=== PATIENT | male | born 1960 | race Caucasian/White ===

== ENCOUNTER 2023-12-24 13:01 | Inpatient (IN) | payer MEDICARE, BC ==
[~2023-12-24] VITALS: Ht 177.8 cm; Wt 77.1 kg
[2023-12-24 13:36] LABS: BASOPHILS # (AUTO) 0.1 K/UL (0.0-0.2); BASOPHILS % (AUTO) 0.9 % (0.0-2.0); EOSINOPHILS # (AUTO) 0.1 K/uL (0.0-0.7); EOSINOPHILS % (AUTO) 1.1 % (0.0-7.0); HEMATOCRIT 46.5 % (36.7-47.1); HEMOGLOBIN 15.8 g/dL (12.5-16.3); LYMPHOCYTES # (AUTO) 2.2 K/uL (0.8-4.8); LYMPHOCYTES % (AUTO) 29.4 % (20.5-51.5); MEAN CORPUSCULAR HEMOGLOBIN 30.3 uug (23.8-33.4); MEAN CORPUSCULAR HGB CONC 34 g/dL (32.5-36.3); MEAN CORPUSCULAR VOLUME 89.6 fL (73.0-96.2); MONOCYTES # (AUTO) 0.5 K/uL (0.1-1.30); MONOCYTES % (AUTO) 6.4 % (0.0-11.0); NEUTROPHILS # (AUTO) 4.6 K/uL (1.8-8.9); NEUTROPHILS % (AUTO) 62.2 % (38.5-71.5); PLATELET COUNT (AUTO) 184 K/uL (152-348); RED BLOOD CELL COUNT(AUTO) 5.19 MIL/uL (4.06-5.63); WHITE BLOOD COUNT (AUTO) 7.4 K/uL (3.6-10.2)
[2023-12-24 13:39] LABS: DIFFERENTIAL COMMENT 1
[2023-12-24 13:48] LABS: CARBON DIOXIDE 31 mmol/L (21-32); CHLORIDE 106 mmol/L (98-107); CREATININE 1.6 mg/dL (0.6-1.3); GLUCOSE 144 mg/dL (74-106); POTASSIUM 3.6 mmol/L (3.5-5.1); SODIUM SERUM 144 mmol/L (136-145); UREA NITROGEN, BLOOD 19 mg/dL (7-18)
[2023-12-24] MEDS ORDERED: ASPIRIN 81 MG TAB.CHEW ONE (14:07)
[2023-12-24] MEDS ORDERED: CLOPIDOGREL 75 MG TABLET ONE (14:07)
[2023-12-24] MEDS: CLOPIDOGREL 75 MG TABLET PO ONE (14:15)
[2023-12-24] MEDS: ASPIRIN 81 MG TAB.CHEW PO ONE (14:15)
[2023-12-24] MEDS ORDERED: SWABABLE VALVE TRANSFER SET EA MC ONE (14:38)
[2023-12-24] MEDS ORDERED: IV NORMAL SALINE 250 ML IV ONE (14:38)
[2023-12-24] MEDS ORDERED: IOHEXOL 350 100 ML INFUS..BTL ONE (14:38)
[2023-12-24] MEDS ORDERED: ONDANSETRON 4 MG/2 ML VIAL IV PRN (16:15)
[2023-12-24] MEDS ORDERED: ACETAMINOPHEN 325 MG TABLET PO PRN (16:15)
[2023-12-24 16:43] LABS: CALCIUM 8.8 mg/dL (8.5-10.1); CREATININE 1.5 mg/dL (0.6-1.3); POTASSIUM 3.9 mmol/L (3.5-5.1)
[2023-12-24 16:57] LABS: ALBUMIN 3.5 g/dL (3.4-5.0); BILIRUBIN,TOTAL 0.4 mg/dL (0.2-1.0); TOTAL PROTEIN, SERUM 6.8 g/dL (6.4-8.2)
[2023-12-24 16:59] LABS: THYROID STIMULATING HORMONE 2.459 mIU/mL (0.358-3.740)
[2023-12-24 17:27] LABS: *BILIRUBIN,URIN NEGATIVE (NEGATIVE); *BLOOD, URINE NEGATIVE (NEGATIVE); *CLARITY,URINE CLEAR (CLEAR); *COLOR,URINE YELLOW (YELLOW); *KETONES,URINE NEGATIVE (NEGATIVE); *PROTEIN,URINE NEGATIVE (NEGATIVE); *UROBILINOGEN,URINE 0.2 E.U./dl (NORMAL); LEUKOCYTE ESTERASE ,URINE NEGATIVE (NEGATIVE); NITRITE, URINE NEGATIVE (NEGATIVE); UGLUCOSE NEGATIVE (NEGATIVE)
[2023-12-24 17:37] VITALS: BP 138/92; TEMP 97.6; O2SAT 97
[2023-12-24] MEDS: BLOOD SUGAR DIAGNOSTIC 1 EACH STRIP VI SCH (17:42)
[2023-12-24] MEDS: IV NS 1000 ML 1,000 ML IV PRN (17:42)
[2023-12-24 20:00] VITALS: BP 131/74; TEMP 98; O2SAT 95
[2023-12-24] MEDS: ATORVASTATIN 20 MG TABLET PO SCH (21:30)
[2023-12-25 00:12] VITALS: BP 124/84; TEMP 98.2; O2SAT 96
[2023-12-25 05:59] VITALS: BP 125/74; TEMP 97.9; O2SAT 95
[2023-12-25 06:52] LABS: BASOPHILS % (AUTO) 0.4 % (0.0-2.0); EOSINOPHILS # (AUTO) 0.1 K/uL (0.0-0.7); EOSINOPHILS % (AUTO) 1.4 % (0.0-7.0); HEMATOCRIT 43.4 % (36.7-47.1); HEMOGLOBIN 15.1 g/dL (12.5-16.3); LYMPHOCYTES # (AUTO) 2.1 K/uL (0.8-4.8); LYMPHOCYTES % (AUTO) 28.6 % (20.5-51.5); MEAN CORPUSCULAR HEMOGLOBIN 31.1 uug (23.8-33.4); MEAN CORPUSCULAR HGB CONC 35 g/dL (32.5-36.3); MEAN CORPUSCULAR VOLUME 89.8 fL (73.0-96.2); MONOCYTES # (AUTO) 0.5 K/uL (0.1-1.30); MONOCYTES % (AUTO) 6.5 % (0.0-11.0); NEUTROPHILS # (AUTO) 4.6 K/uL (1.8-8.9); NEUTROPHILS % (AUTO) 63.1 % (38.5-71.5); PLATELET COUNT (AUTO) 171 K/uL (152-348); RED BLOOD CELL COUNT(AUTO) 4.84 MIL/uL (4.06-5.63); WHITE BLOOD COUNT (AUTO) 7.2 K/uL (3.6-10.2)
[2023-12-25 07:14] LABS: CALCIUM 8.6 mg/dL (8.5-10.1); CREATININE 1.4 mg/dL (0.6-1.3); POTASSIUM 4.2 mmol/L (3.5-5.1)
[2023-12-25 07:17] LABS: DIFFERENTIAL COMMENT 1
[2023-12-25] MEDS ORDERED: INSULIN REGULAR, HUMAN 1000 UNIT/10 ML VIAL SQ PRN (07:45)
[2023-12-25] MEDS ORDERED: DEXTROSE 50% 50 ML DISP.SYRIN IV PRN (07:45)
[2023-12-25 07:47] VITALS: BP 131/77; TEMP 98.1; O2SAT 96
[2023-12-25 07:55] LABS: MAGNESIUM 2.2 mg/dL (1.8-2.4)
[2023-12-25 08:34] VITALS: BP 131/77; TEMP 98.1; O2SAT 96
[2023-12-25] MEDS: BLOOD SUGAR DIAGNOSTIC 1 EACH STRIP VI SCH (12:13)
[2023-12-25 15:40] VITALS: BP 134/83; TEMP 98.2; O2SAT 96
[2023-12-25 19:57] VITALS: BP 131/73; TEMP 98.6; O2SAT 98
[2023-12-26 00:36] VITALS: BP 123/62; TEMP 98.5; O2SAT 96
[2023-12-26 05:19] VITALS: BP 110/56; TEMP 97.8; O2SAT 96
[2023-12-26 06:46] LABS: BASOPHILS # (AUTO) 0.1 K/UL (0.0-0.2); EOSINOPHILS # (AUTO) 0.1 K/uL (0.0-0.7); EOSINOPHILS % (AUTO) 1.4 % (0.0-7.0); HEMATOCRIT 45.6 % (36.7-47.1); HEMOGLOBIN 15.4 g/dL (12.5-16.3); LYMPHOCYTES # (AUTO) 2.2 K/uL (0.8-4.8); LYMPHOCYTES % (AUTO) 29.6 % (20.5-51.5); MEAN CORPUSCULAR HEMOGLOBIN 30.5 uug (23.8-33.4); MEAN CORPUSCULAR HGB CONC 34 g/dL (32.5-36.3); MEAN CORPUSCULAR VOLUME 90.2 fL (73.0-96.2); MONOCYTES # (AUTO) 0.5 K/uL (0.1-1.30); MONOCYTES % (AUTO) 6.3 % (0.0-11.0); NEUTROPHILS # (AUTO) 4.6 K/uL (1.8-8.9); NEUTROPHILS % (AUTO) 61.7 % (38.5-71.5); PLATELET COUNT (AUTO) 168 K/uL (152-348); RED BLOOD CELL COUNT(AUTO) 5.06 MIL/uL (4.06-5.63); RED CELL DISTRIBUTION WIDTH 12.8 % (12.1-16.2); WHITE BLOOD COUNT (AUTO) 7.5 K/uL (3.6-10.2)
[2023-12-26 06:54] LABS: DIFFERENTIAL COMMENT 1
[2023-12-26 07:08] LABS: ALBUMIN 3.4 g/dL (3.4-5.0); BILIRUBIN,TOTAL 0.8 mg/dL (0.2-1.0); CALCIUM 8.5 mg/dL (8.5-10.1); CREATININE 1.3 mg/dL (0.6-1.3); MAGNESIUM 2.5 mg/dL (1.8-2.4); PHOSPHOROUS 2.9 mg/dL (2.5-4.9); POTASSIUM 4.2 mmol/L (3.5-5.1); TOTAL PROTEIN, SERUM 6.8 g/dL (6.4-8.2)
[2023-12-26 07:50] VITALS: BP 122/74; TEMP 97.8; O2SAT 94
[2023-12-26 11:56] VITALS: BP 135/85; TEMP 97.2; O2SAT 97
[2023-12-26] MEDS ORDERED: FENO48TA6 PO (13:39)
[2023-12-26] MEDS ORDERED: CLOP75TA15 PO (13:39)
[2023-12-26] MEDS ORDERED: ATOR40TA PO (13:39)
[2023-12-26] MEDS ORDERED: ASPI-1420 PO (13:39)
[2023-12-27 07:06] LABS: PTH, INTACT 19 pg/mL (15-65)
== END 2023-12-26 15:15 | disposition home or self-care (01) | DRG 64 ==
LOC: ER 13:01 → TELE3 17:02
PROVIDERS: ADMIT Nurse Practitioner Acute Care; ATTEND Nurse Practitioner Acute Care
DX: I63.89 Other cerebral infarction (principal); N17.0 Acute kidney failure with tubular necrosis; G81.91 Hemiplegia, unspecified affecting right dominant side; R29.700 NIHSS score 0; Z87.891 Personal history of nicotine dependence; R26.2 Difficulty in walking, not elsewhere classified; E78.1 Pure hyperglyceridemia; Z87.442 Personal history of urinary calculi; M89.8X9 Other specified disorders of bone, unspecified site; I51.7 Cardiomegaly; N18.9 Chronic kidney disease, unspecified
CPT/HCPCS: 36415; 70450; 70496; 70551; 71045; 76770; 83735; 83970; 84100; 84155; 84165; 84443; 84484; 85025; 85651; 85730; 93307; A4606; A4663; G0378; J1815; J7040; Q9967